=== PATIENT | male | born 1935 | race Caucasian/White ===

== ENCOUNTER 2018-11-11 22:25 | Emergency (ER) | payer MEDICARE, BC ==
[2018-11-11 23:48] LABS: #Basophils 0.1 thou/uL (0.0-0.2); #Eosinphils 0.3 thou/uL (0.0-0.7); #Lymphocytes 1.7 thou/uL (1.20-3.40); #Monocytes 0.8 thou/uL (0.11-0.59); #Neutrophils 5.5 thou/uL (1.40-6.50); %Basophils 1.1 % (0.0-1.0); %Lymphocytes 19.9 % (21.0-51.0); %Monocytes 9.8 % (0.0-10.0); %Neutrophils 66.2 % (42.0-75.0); Hemoglobin 14.3 g/dL (14.0-18.0); Mean Corpuscular Hemoglobin 31.8 pg (27.0-31.0); Mean Corpuscular Volume 96.3 fL (78.0-98.0); Platelet Count 246 thou/uL (130-400); RBC Distribution Width 12.3 % (11.5-14.5); Red Blood Cell (RBC) Count 4.49 mill/uL (4.70-6.10); White Blood Cell (WBC) Count 8.3 thou/uL (4.8-10.8)
[2018-11-11 23:50] LABS: INR-International Normal Ratio 1.1; Prothrombin Time 14.7 SEC (12.0-14.7)
[2018-11-11 23:52] LABS: D-Dimer Test 0.97 *mcg/mL (0.27-0.43)
--- NOTE | 2018-11-12 00:01 | ULT ---
RIGHT LOWER EXTREMITY VENOUS DOPPLER WITH SPECTRAL ANALYSIS AND COLOR FLOW EVALUATION 11/11/18 HISTORY: Right lower extremity pain/edema. History of right knee replacement many years ago. FINDINGS: Rust scale, color flow, doppler evaluation, with spectral analysis of the right lower extremity venou s structures is performed with 2D imaging. The right lower extremity common femoral, superficial femoral, popliteal, posterior tibial, most prox imal greater saphenous and profunda femoral veins are imaged. There is normal lumen compressibility, flow, and augmentation in the visualized deep venous structure s of the right lower extremity. There is a complex fluid collection within the popliteal fossa with internal echogenic material prese nt within the collection. This measures 6.3 cm x 2.2 cm x 3.3 cm. There is also complex fluid collect ion in the upper calf measuring 6.8 cm x 2.1 cm and an additional collection in the mid calf measurin g 0.5 cm x 1.9 cm x 4.5 cm. Color flow evaluation of these collections demonstrates no flow. Collection in the upper calf demonst rates septations. [employer] Specialist notes that collections did not definitely connect with one another . However, these findings may be attributable to a ruptured complex Martinez's cyst in the popliteal fo ssa with fluid extending to the calf. However, this cannot be definitely determined based on this exa m. IMPRESSION: 1. No evidence of a DVT involving the visualized deep venous structures right lower extremity. 2. Findings statistically most likely representing a complex Martinez's cyst. However, there are ad ditional fluid collections within the calf, one located at the upper calf and second at the level of the mid calf. [employer] Specialist notes that the collections do not definitively connect, but findings a re thought to be related to rupture of a complex Martinez's cyst. If there is concern for infection or w orrisome clinical concerns, additional imaging is warranted such as followup ultrasound or MRI. POS: JO
[2018-11-12 00:04] LABS: ALT (SGPT) 15 U/L (8-55); AST (SGOT) 15 U/L (5-34); Albumin 4.2 g/dL (3.4-4.8); Alkaline Phosphatase 94 U/L (40-150); Anion Gap 10 mmol/L (10-20); BUN (Urea Nitrogen) 15 mg/dL (8.4-25.7); Bilirubin, Total 0.3 mg/dL (0.2-1.2); Calc. Creatinine Clearance 0 mL/min (70-130); Calcium 9.5 mg/dL (7.8-10.44); Carbon Dioxide 29 mmol/L (23-31); Chloride 106 mmol/L (98-107); Estimated GFR-MDRD 66; Globulin 2.6 g/dL (2.4-3.5); Glucose 104 mg/dL (83-110); Potassium 4.4 mmol/L (3.5-5.1); Protein, Total 6.8 g/dL (5.8-8.1); Sodium 141 mmol/L (136-145)
== END 2018-11-12 00:57 | disposition home or self-care (01) ==
LOC: ERS 22:25
DX: M71.21 Synovial cyst of popliteal space [Baker], right knee (principal); Z79.899 Other long term (current) drug therapy
CPT/HCPCS: 36415; 80053; 85025; 85379; 85610